=== PATIENT | female | born 1995 | race Caucasian/White ===

== ENCOUNTER 2019-08-01 16:42 | Emergency (ER) | payer OTHER, SELFPAY ==
--- NOTE | 2019-08-01 16:57 | ED.FEMALEGU ---
HPI - Female Genitourinary General Chief complaint: Urogenital-Female Stated complaint: possible Uti Time Seen by Provider: 08/01/19 16:57 Source: patient and RN notes reviewed History of Present Illness HPI Narrative: Patient is a 23-year-old female who presents the urgent care with complaints of a cough for at least 1 week. Patient states it is productive on occasion and she has been taking Mucinex. Patient states that she has been quarantining at home due to her cough and is supposed to return back to work tomorrow. Patient denies of any fevers, nausea, vomiting, chest pain. States that she also has frequency of UTIs and started having dysuria and bilateral flank pain with mild suprapubic pressure within the last day or so. Patient states that she is increased her water intake. Denies of any blood in the urine. No other acute complaints. No acute distress noted. Patient read the plan of care. Related Data Allergies Allergy/AdvReac Type Severity Reaction Status Date / Time No Known Allergies Allergy Unverified 04/16/17 10:56 Review of Systems Review of Systems: Narrative: CONSTITUTIONAL: Denies fever, chills, or sweats. EYES: Denies visual changes, redness, or discharge. ENT: Denies rhinorrhea, congestion, sore throat, or otalgia. CARDIOVASCULAR: Denies chest pain, palpitations, or edema. RESPIRATORY: reports of cough without dyspnea GASTROINTESTINAL: Denies abdominal pain, nausea, vomiting, or diarrhea. GENITOURINARY: reports of dysuria and suprapubic pressure SKIN: Denies rash or itching. MUSCULOSKELETAL: reports of back pain NEUROLOGIC: Denies headache, numbness, or weakness. All other systems reviewed are negative, except as documented in HPI. PMFSH Comments At the time of my signature, I reviewed and agree with the nursing past medical, surgical, social, and family history. There is no relevant family history pertinent to the patient complaint. Exam Narrative: Exam Narrative: GENERAL: This is a well-nourished, well-developed patient, in no apparent distress. HEAD: normocephalic, atraumatic. EYES: PERRL. Sclera clear/white. Vision is grossly intact. EARS: External ears normal NOSE: External nose normal with no obvious nasal discharge, nares without redness, no rhinorrhea. THROAT: Mucous membranes moist NECK: Neck supple CARDIOVASCULAR: Regular rate and rhythm without murmurs, gallops, or rubs. RESPIRATORY: Mild expiratory wheezes throughout with slight bibasilar crackles. GASTROINTESTINAL: mild suprapubic pressure SKIN: warm, intact with no suspicious lesions or rash, good texture and turgor. NEURO: awake, alert, and oriented to person, place and time. There were no obvious focal neurologic abnormalities. EXTREMITIES: No clubbing, cyanosis, or edema. BACK: mild bilateral flank tenderness. Course Vital Signs Vital signs: Vital Signs Temperature 98.9 F 08/01/19 16:58 Pulse Rate 95 08/01/19 16:58 Respiratory Rate 16 08/01/19 16:58 Blood Pressure 118/79 08/01/19 16:58 Pulse Oximetry 99 08/01/19 16:58 Temperature 98.9 F 08/01/19 16:58 Pulse Rate 95 08/01/19 16:58 Respiratory Rate 16 08/01/19 16:58 Blood Pressure 118/79 08/01/19 16:58 Pulse Oximetry 99 08/01/19 16:58 Reviewed MDM - Female Genitourinary MDM Narrative Medical decision making narrative: Advised the patient to complete steroid regimen as prescribed. Use Tessalon Perles for nonproductive cough, or prior to bedtime to suppress the cough. Use inhaler as needed for wheezing or shortness of breath. If your symptoms do not improve or worsen with fever, chest pain, shortness of breath?go to the emergency room. Urine analysis is negative at the facility but we will culture the urine due to history of UTIs, and call if medication is necessary. You may check on your culture results anytime on August 03 after 12 PM if you have not received a phone call. If you develop any increase in symptoms associated with abdominal pain,
[2019-08-01 16:58] VITALS: BP 118/79; PULSE 95; RESP 16; TEMP 37.2; O2SAT 99
== END 2019-08-01 17:22 | disposition home or self-care (01) ==
PROVIDERS: Emergency Provider Nurse Practitioner Family
DX: J40 Bronchitis, not specified as acute or chronic (principal); R30.0 Dysuria
CPT/HCPCS: 81003; 87086; 99213; G0463